=== PATIENT | male | born 1955 | race Two or more races ===

== ENCOUNTER 2025-09-28 08:54 | Outpatient (CLI) | payer MEDICARE ==
[2025-09-28 10:12] LABS: APPEARANCE,URINE CLEAR (CLEAR); BLOOD, URINE TRACE-INTA Ery/uL (NEGATIVE); LEUKOCYTE ESTERASE ,URINE NEGATIVE (NEGATIVE); NITRITE, URINE NEGATIVE (NEGATIVE); UGLUCOSE 3+ mg/dL (NEGATIVE)
[2025-09-28 10:13] LABS: PLATELET COUNT (AUTO) 288 K/uL (150-450); RED BLOOD CELL COUNT(AUTO) 4.67 MIL/uL (4.5-6.0); RED CELL DISTRIBUTION WIDTH 14.0 % (11.5-15.0); WHITE BLOOD COUNT (AUTO) 6.0 K/uL (4.3-11.0)
[2025-09-28 10:31] LABS: ADD URINE CULTURE NO; ERYTHROCYTE SEDIMENTATION RATE 15 MM/HR (0-20); SQUAMOUS EPITHELIAL CELL,UR None Seen /HPF (None Seen)
[2025-09-28 10:43] LABS: ASPARTATE AMINOTRANSFERASE 13.0 U/L (15-37); CALCIUM, SERUM 9.1 mg/dL (8.5-10.1); CREATININE 0.9 mg/dL (0.6-1.3); PHOSPHORUS 3.0 mg/dL (2.5-4.9); SODIUM SERUM 141.0 mmol/L (136-145); TOTAL PROTEIN, SERUM 7.5 g/dL (6.4-8.2); UREA NITROGEN, BLOOD 16.0 mg/dL (7-18)
[2025-09-28 10:45] LABS: LDL 101.0 mg/dL (0-99); URINE TOTAL PROTEIN 264.8 mg/dL (0-11.9)
[2025-09-29 04:11] LABS: VIT D, 25-HYDROXY 44.0 ng/mL (30.0-100.0)
[2025-09-29 06:07] LABS: COMPLEMENT C3, SERUM 154 mg/dL (82-167); COMPLEMENT C4, SERUM 34 mg/dL (12-38); IMMUNOGLOBULIN A, SERUM 242 mg/dL (61-437); IMMUNOGLOBULIN M, SERUM 100 mg/dL (20-172); PTH, INTACT 16 pg/mL (15-65)
[2025-09-29 14:07] LABS: ALBUMIN, URINE 1461.0 ug/mL (Not Estab.)
[2025-10-01 09:11] LABS: *SPE A/G RATIO 0.9 (0.7-1.7); *SPE ALBUMIN 3.2 g/dL (2.9-4.4); *SPE ALPHA-1-GLOBULIN 0.2 g/dL (0.0-0.4); *SPE ALPHA-2-GLOBULIN 0.9 g/dL (0.4-1.0); *SPE BETA GLOBULIN 1.2 g/dL (0.7-1.3); *SPE GLOBULIN, TOTAL 3.6 g/dL (2.2-3.9); *SPE M-SPIKE Not Observed g/dL (Not Observed); *SPE PROTEIN TOTAL 6.8 g/dL (6.0-8.5); *SPEGAMMA GLOBULIN 1.3 g/dL (0.4-1.8)
[2025-10-06 03:11] LABS: *PROTEIN,TOTAL, URINE 24HR 276.5 mg/dL (Not Estab.)
== END 2025-09-28 23:59 | disposition home or self-care (01) ==
LOC: MSC 08:54
PROVIDERS: ATTEND Internal Medicine
DX: E11.22 Type 2 diabetes mellitus with diabetic chronic kidney disease (principal); I12.9 Hypertensive chronic kidney disease with stage 1 through stage 4 chronic kidney disease, or unspecified chronic kidney disease; N18.2 Chronic kidney disease, stage 2 (mild); Z79.84 Long term (current) use of oral hypoglycemic drugs; E11.21 Type 2 diabetes mellitus with diabetic nephropathy; R80.9 Proteinuria, unspecified; E78.5 Hyperlipidemia, unspecified; E66.9 Obesity, unspecified
CPT/HCPCS: 80061; 85025; 83735; 83036; 84100; 85652; 81001; 80053; 86140; 86038; 84156; 82306; 83970; 86160 ×2; 82784 ×3; 84165; 86334; 84155; G0463; 36415

== ENCOUNTER 2025-10-07 14:30 | Outpatient (CLI) | payer MEDICARE | END 2025-10-07 23:59 | disposition home or self-care (01) | LOC: MSC 14:30 | PROVIDERS: ATTEND Internal Medicine | DX: E11.22 Type 2 diabetes mellitus with diabetic chronic kidney disease (principal); I12.9 Hypertensive chronic kidney disease with stage 1 through stage 4 chronic kidney disease, or unspecified chronic kidney disease; N18.2 Chronic kidney disease, stage 2 (mild); Z79.84 Long term (current) use of oral hypoglycemic drugs; R80.9 Proteinuria, unspecified; E78.5 Hyperlipidemia, unspecified; E66.9 Obesity, unspecified ==